=== PATIENT | female | born 1935 | race African-American/Black ===

== ENCOUNTER 2018-04-02 11:30 | Inpatient (IN) ==
[2018-04-02] MEDS ORDERED: SODIUM CHLORIDE 0.9% 1,000 ML IV STA ×2 (11:43→14:15)
[2018-04-02 13:23] LABS: Alanine Aminotransferase 12 U/L (13-56); Albumin 2.1 G/DL (3.4-5.0); Alkaline Phosphatase 125 U/L (45-117); Aspartate Amino Transferase 14 U/L (0-37); Bilirubin,Total < 0.39 MG/DL (0.2-1.0); Blood Urea Nitrogen 33 MG/DL (7-18); Calcium 9.1 MG/DL (8.5-10.1); Glucose 279 MG/DL (74-106); Osmolality,Calculated 325.2 MOS/KG (273-304); Potassium 3.2 MMOL/L (3.5-5.1); Sodium 156 MMOL/L (136-145); Total Protein 7.2 G/DL (6.4-8.3)
[2018-04-02 13:28] LABS: Ammonia < 10 UMOL/L (11-32)
[2018-04-02 13:35] LABS: INR 1.1; PT Patient Result 11.4 SECS; Partial Thromboplastin Time < 21.0 SECS (0-40)
[2018-04-02 13:45] LABS: Barbiturates Screen,Urine Negative (Negative); Benzodiazepines Screen,Urine Negative (Negative); Cannabinoid Screen,Urine Negative (Negative); Opiate Screen,Urine Positive (Negative); Phencyclidine Screen,Urine Negative (Negative)
[2018-04-02 13:47] LABS: Basophils # 0.1 10*3/uL (0.0-0.2); Basophils % 0.7 % (0.0-0.8); Hemoglobin 9.3 GM/DL (12.0-16.0); Immature Granulocytes % 4.2 %; Immature Granulocytes Absolute 0.29 #; Lymphocytes % 14.2 % (21.3-54.2); Mean Corpuscular Hemoglobin 32 PG (27-34); Mean Corpuscular Volume 102.7 FL (87-102); Mean Platelet Volume 10.5 FL (9.6-12.0); Monocytes # 0.6 10*3/uL (0.11-0.8); NRBC # 0.08 10*3/uL; Neutrophils % 71.9 % (38.7-73.9); Platelet Count 248 T/CUMM (130-400); Red Blood Count 2.92 MC/CUMM (3.8-5.5); Red Cell Distribution Width 15.9 % (9.3-17.3); White Blood Count 6.9 T/CUMM (4-12)
[2018-04-02 13:56] LABS: Apearance,Urine Cloudy (Clear); Glucose,Urine (UA) >=1000 mg/dL (Negative); Protein,Urine 30 MG/DL; Urine Color Yellow (Yellow)
[2018-04-02 13:57] LABS: Bilirubin,Urine Negative (Negative); Blood, Urine Small mg/dL (Negative); Ketones,Urine 100 mg/dL (Negative); Nitrite,Urine Negative (Negative)
[2018-04-02 13:58] LABS: Bacteria,Urine Rare /HPF (Few); RBC,Urine 5 /HPF (0-4); Urine Urobilinogen 0.2 EU/DL (0.2-1.0); WBC,Urine 10 /HPF (0-6)
[2018-04-02] MEDS ORDERED: ONDANSETRON 4 MG/2 ML VIAL IV PRN (15:40)
[2018-04-02] MEDS ORDERED: ACETAMINOPHEN 325 MG TABLET PO PRN (15:40)
[2018-04-02] MEDS ORDERED: GLUCAGON 1 MG VIAL IM PRN (15:47)
[2018-04-02] MEDS ORDERED: DEXTROSE 50% 25 GM/50 ML VIAL IV PRN (15:47)
[2018-04-02] MEDS: ENOXAPARIN 40 MG/0.4 ML SYRINGE SUBCUT SCH (16:50)
[2018-04-02] MEDS: cefTRIAXone 1,000 MG in SYRINGE 1 EACH IV SCH (16:50)
[2018-04-02] MEDS: SODIUM CHLORIDE 0.45% 1,000 ML IV SCH (17:45)
[2018-04-02] MEDS ORDERED: POTASSIUM CHLORIDE 20 MEQ TABLET PO ONE (18:30)
[2018-04-02 19:52] LABS: Calcium 8.7 MG/DL (8.5-10.1); Osmolality,Calculated 324.9 MOS/KG (273-304); Potassium 3.2 MMOL/L (3.5-5.1)
[2018-04-02] MEDS: INSULIN LISPRO 100 UNIT/ML SUBCUT SCH ×2 (20:51→21:47)
[2018-04-02] MEDS: LETROZOLE 2.5 MG TABLET PO SCH (20:53)
[2018-04-02] MEDS: MEMANTINE 10 MG TABLET PO SCH (20:53)
[2018-04-02] MEDS ORDERED: PALBOCICLIB 100 MG PO SCH (21:00)
[2018-04-02] MEDS ORDERED: INSULIN NPH 100 UNIT/ML SUBCUT SCH (21:00)
[2018-04-03] MEDS: INSULIN LISPRO 100 UNIT/ML SUBCUT SCH ×6 (01:47→22:42)
[2018-04-03] MEDS: SODIUM CHLORIDE 0.45% 1,000 ML IV SCH (04:34)
[2018-04-03 05:27] LABS: Basophils # 0.1 10*3/uL (0.0-0.2); Basophils % 1.2 % (0.0-0.8); Eosinophils # 0.1 10*3/uL (0.0-0.87); Eosinophils % 1.7 % (0.00-10.9); Hematocrit 28.7 VOL% (35.7-47.0); Hemoglobin 8.4 GM/DL (12.0-16.0); Immature Granulocytes % 3.9 %; Immature Granulocytes Absolute 0.23 #; Lymphocytes # 1.2 10*3/uL (1.4-4.0); Lymphocytes % 19.4 % (21.3-54.2); Mean Corpuscular HGB Conc 29.3 GM/DL (32-36); Mean Corpuscular Hemoglobin 32 PG (27-34); Mean Corpuscular Volume 108.7 FL (87-102); Monocytes # 0.6 10*3/uL (0.11-0.8); Monocytes % 10.1 % (1.7-12.7); NRBC # 0.04 10*3/uL; Neutrophils # 3.8 10*3/uL (1.4-7.4); Neutrophils % 63.7 % (38.7-73.9); Platelet Count 210 T/CUMM (130-400); Red Blood Count 2.64 MC/CUMM (3.8-5.5); White Blood Count 5.9 T/CUMM (4-12)
[2018-04-03 05:37] LABS: Alanine Aminotransferase < 9 U/L (13-56); Albumin 1.7 G/DL (3.4-5.0); Alkaline Phosphatase 100 U/L (45-117); Aspartate Amino Transferase 15 U/L (0-37); Blood Urea Nitrogen 24 MG/DL (7-18); Calcium 7.8 MG/DL (8.5-10.1); Glucose 182 MG/DL (74-106); Osmolality,Calculated 309.7 MOS/KG (273-304); Potassium 3.5 MMOL/L (3.5-5.1); Sodium 152 MMOL/L (136-145); Total Protein 5.9 G/DL (6.4-8.3)
[2018-04-03 06:39] LABS: Macrocytosis 2+; Platelet Estimate Normal; Polychromasia 1+
[2018-04-03 06:41] LABS: Band Neutrophils 1 % (0-10); Eosinophils 1 % (0-10); Lymphocytes 23 % (20-55); Segmented Neutrophils 67 % (50-85); Total Cells Counted 100
[2018-04-03] MEDS ORDERED: LABETALOL 20 MG/4 ML SYRINGE IV ONE (07:29)
[2018-04-03] MEDS: ALLOPURINOL 100 MG TABLET PO SCH (09:38)
[2018-04-03] MEDS: PANTOPRAZOLE 40 MG TABLET PO SCH (09:38)
[2018-04-03] MEDS: MEMANTINE 10 MG TABLET PO SCH ×2 (09:38→20:20)
[2018-04-03] MEDS ORDERED: NIFEdipine 10 MG CAPSULE PO PRN (14:26)
[2018-04-03] MEDS: amLODIPine 5 MG TABLET PO SCH (16:44)
[2018-04-03] MEDS: ENOXAPARIN 40 MG/0.4 ML SYRINGE SUBCUT SCH (18:10)
[2018-04-03] MEDS: SODIUM HYPOCHLORITE 0.25% IRRIG 473 ML BOTTLE TOP SCH ×2 (19:02→20:12)
[2018-04-03] MEDS: LETROZOLE 2.5 MG TABLET PO SCH (20:20)
[2018-04-04] MEDS: INSULIN LISPRO 100 UNIT/ML SUBCUT SCH ×6 (02:22→21:33)
[2018-04-04 05:31] LABS: Basophils # 0.1 10*3/uL (0.0-0.2); Basophils % 1.2 % (0.0-0.8); Eosinophils # 0.2 10*3/uL (0.0-0.87); Eosinophils % 3.1 % (0.00-10.9); Hematocrit 25.9 VOL% (35.7-47.0); Hemoglobin 7.8 GM/DL (12.0-16.0); Immature Granulocytes % 5.4 %; Immature Granulocytes Absolute 0.35 #; Lymphocytes # 1.2 10*3/uL (1.4-4.0); Lymphocytes % 18.7 % (21.3-54.2); Mean Corpuscular HGB Conc 30.1 GM/DL (32-36); Mean Corpuscular Hemoglobin 32 PG (27-34); Mean Corpuscular Volume 105.3 FL (87-102); Mean Platelet Volume 10.2 FL (9.6-12.0); Monocytes # 0.5 10*3/uL (0.11-0.8); Monocytes % 8.2 % (1.7-12.7); NRBC # 0.05 10*3/uL; Neutrophils # 4.1 10*3/uL (1.4-7.4); Neutrophils % 63.4 % (38.7-73.9); Platelet Count 238 T/CUMM (130-400); Red Blood Count 2.46 MC/CUMM (3.8-5.5); Red Cell Distribution Width 15.8 % (9.3-17.3); White Blood Count 6.5 T/CUMM (4-12)
[2018-04-04 06:23] LABS: Band Neutrophils 3 % (0-10); Eosinophils 4 % (0-10); Hypochromasia 1+; Lymphocytes 21 % (20-55); Macrocytosis 1+; Myelocytes 1 %; Nucleated Red Blood Cells 1 (0-5); Ovalocytes Slight; Segmented Neutrophils 63 % (50-85); Total Cells Counted 100
[2018-04-04 06:24] LABS: Platelet Estimate Normal; Polychromasia Slight
[2018-04-04 06:25] LABS: Calcium 8.6 MG/DL (8.5-10.1); Osmolality,Calculated 319.9 MOS/KG (273-304); Potassium 3.2 MMOL/L (3.5-5.1)
[2018-04-04] MEDS: FLUCONAZOLE INJ 200 MG in PREMIX 1 EACH IV SCH ×2 (09:23→12:17)
[2018-04-04] MEDS: cefTRIAXone 1,000 MG in SYRINGE 1 EACH IV SCH ×2 (09:23→16:26)
[2018-04-04] MEDS: DEXTROSE 5% 1,000 ML IV SCH ×2 (09:57→20:18)
[2018-04-04] MEDS: ALLOPURINOL 100 MG TABLET PO SCH (09:58)
[2018-04-04] MEDS: PANTOPRAZOLE 40 MG TABLET PO SCH (09:58)
[2018-04-04] MEDS: amLODIPine 5 MG TABLET PO SCH (10:05)
[2018-04-04] MEDS: MEMANTINE 10 MG TABLET PO SCH ×2 (10:08→20:17)
[2018-04-04] MEDS: SODIUM CHLORIDE 0.45% 1,000 ML IV SCH (11:30)
[2018-04-04] MEDS: oxyCODONE IR 5 MG TABLET PO PRN ×2 (13:44→17:45)
[2018-04-04] MEDS: SODIUM HYPOCHLORITE 0.25% IRRIG 473 ML BOTTLE TOP SCH ×2 (14:50→20:18)
[2018-04-04 15:45] LABS: Calcium 8.5 MG/DL (8.5-10.1); Osmolality,Calculated 312.6 MOS/KG (273-304); Potassium 3.6 MMOL/L (3.5-5.1)
[2018-04-04] MEDS: ENOXAPARIN 40 MG/0.4 ML SYRINGE SUBCUT SCH (16:25)
[2018-04-04] MEDS: LETROZOLE 2.5 MG TABLET PO SCH (20:17)
[2018-04-05] MEDS: INSULIN LISPRO 100 UNIT/ML SUBCUT SCH ×5 (02:18→17:45)
[2018-04-05 04:52] LABS: Basophils # 0.1 10*3/uL (0.0-0.2); Basophils % 1.5 % (0.0-0.8); Eosinophils # 0.2 10*3/uL (0.0-0.87); Eosinophils % 3.7 % (0.00-10.9); Hematocrit 26.8 VOL% (35.7-47.0); Immature Granulocytes % 6.3 %; Immature Granulocytes Absolute 0.37 #; Lymphocytes # 1.3 10*3/uL (1.4-4.0); Lymphocytes % 22.8 % (21.3-54.2); Mean Corpuscular HGB Conc 29.9 GM/DL (32-36); Mean Corpuscular Hemoglobin 31 PG (27-34); Mean Corpuscular Volume 105.1 FL (87-102); Mean Platelet Volume 11.2 FL (9.6-12.0); Monocytes # 0.4 10*3/uL (0.11-0.8); Monocytes % 6.8 % (1.7-12.7); NRBC # 0.05 10*3/uL; Neutrophils # 3.5 10*3/uL (1.4-7.4); Neutrophils % 58.9 % (38.7-73.9); Platelet Count 195 T/CUMM (130-400); Red Blood Count 2.55 MC/CUMM (3.8-5.5); Red Cell Distribution Width 16.1 % (9.3-17.3); White Blood Count 5.9 T/CUMM (4-12)
[2018-04-05 04:56] LABS: Calcium 8.3 MG/DL (8.5-10.1); Ferritin 347.4 ng/ml (8-252); Osmolality,Calculated 303.3 MOS/KG (273-304); Potassium 3.1 MMOL/L (3.5-5.1)
[2018-04-05 05:39] LABS: Acanthocytes 1+; Anisocytosis 2+; Band Neutrophils 4 % (0-10); Eosinophils 1 % (0-10); Hypochromasia 2+; Lymphocytes 22 % (20-55); Macrocytosis 2+; Metamyelocytes 1 %; Ovalocytes 1+; Platelet Estimate Normal; Polychromasia 1+; Segmented Neutrophils 68 % (50-85); Total Cells Counted 100
[2018-04-05] MEDS: DEXTROSE 5% 1,000 ML IV SCH ×2 (05:59→15:20)
[2018-04-05] MEDS: MEMANTINE 10 MG TABLET PO SCH ×2 (09:26→21:37)
[2018-04-05] MEDS: amLODIPine 5 MG TABLET PO SCH (09:26)
[2018-04-05] MEDS: ALLOPURINOL 100 MG TABLET PO SCH (09:27)
[2018-04-05] MEDS: PANTOPRAZOLE 40 MG TABLET PO SCH (09:27)
[2018-04-05] MEDS: oxyCODONE IR 5 MG TABLET PO PRN ×2 (10:30→18:32)
[2018-04-05] MEDS: SODIUM HYPOCHLORITE 0.25% IRRIG 473 ML BOTTLE TOP SCH ×2 (10:32→21:37)
[2018-04-05] MEDS: FLUCONAZOLE INJ 200 MG in PREMIX 1 EACH IV SCH (12:07)
[2018-04-05] MEDS: ENOXAPARIN 40 MG/0.4 ML SYRINGE SUBCUT SCH (17:44)
[2018-04-05] MEDS: cefTRIAXone 1,000 MG in SYRINGE 1 EACH IV SCH (17:46)
[2018-04-05] MEDS: LETROZOLE 2.5 MG TABLET PO SCH (21:37)
[2018-04-06] MEDS: INSULIN LISPRO 100 UNIT/ML SUBCUT SCH ×7 (02:26→20:25)
[2018-04-06] MEDS: DEXTROSE 5% 1,000 ML IV SCH ×3 (04:50→11:29)
[2018-04-06 05:06] LABS: Basophils # 0.1 10*3/uL (0.0-0.2); Basophils % 2.1 % (0.0-0.8); Eosinophils # 0.2 10*3/uL (0.0-0.87); Eosinophils % 3.6 % (0.00-10.9); Hematocrit 24.3 VOL% (35.7-47.0); Hemoglobin 7.2 GM/DL (12.0-16.0); Immature Granulocytes % 8.8 %; Immature Granulocytes Absolute 0.56 #; Lymphocytes # 1.6 10*3/uL (1.4-4.0); Mean Corpuscular HGB Conc 29.6 GM/DL (32-36); Mean Corpuscular Hemoglobin 31 PG (27-34); Mean Corpuscular Volume 105.7 FL (87-102); Mean Platelet Volume 10.4 FL (9.6-12.0); Monocytes # 0.4 10*3/uL (0.11-0.8); Monocytes % 6.3 % (1.7-12.7); NRBC # 0.05 10*3/uL; Neutrophils # 3.4 10*3/uL (1.4-7.4); Neutrophils % 54.2 % (38.7-73.9); Platelet Count 222 T/CUMM (130-400); Red Cell Distribution Width 15.8 % (9.3-17.3); White Blood Count 6.3 T/CUMM (4-12)
[2018-04-06 05:38] LABS: Calcium 7.9 MG/DL (8.5-10.1); Osmolality,Calculated 300.7 MOS/KG (273-304); Potassium 2.8 MMOL/L (3.5-5.1)
[2018-04-06 05:39] LABS: Band Neutrophils 16 % (0-10); Eosinophils 5 % (0-10); Lymphocytes 27 % (20-55); Segmented Neutrophils 47 % (50-85); Total Cells Counted 100
[2018-04-06 05:40] LABS: Anisocytosis 1+; Poikilocytosis 1+
[2018-04-06] MEDS: POTASSIUM CHLORIDE RIDER 10 MEQ in PREMIX 1 EACH IV PRN ×4 (06:54→15:36)
[2018-04-06] MEDS: amLODIPine 5 MG TABLET PO SCH (10:11)
[2018-04-06] MEDS: MEMANTINE 10 MG TABLET PO SCH ×2 (10:12→20:26)
[2018-04-06] MEDS: ALLOPURINOL 100 MG TABLET PO SCH (10:12)
[2018-04-06] MEDS: PANTOPRAZOLE 40 MG TABLET PO SCH (10:12)
[2018-04-06] MEDS: SODIUM HYPOCHLORITE 0.25% IRRIG 473 ML BOTTLE TOP SCH ×2 (10:13→23:30)
[2018-04-06] MEDS: FLUCONAZOLE INJ 200 MG in PREMIX 1 EACH IV SCH (13:44)
[2018-04-06] MEDS ORDERED: SODIUM CHLORIDE 0.9% 1,000 ML IV PRN (15:09)
[2018-04-06] MEDS: ENOXAPARIN 40 MG/0.4 ML SYRINGE SUBCUT SCH (15:34)
[2018-04-06] MEDS: cefTRIAXone 1,000 MG in SYRINGE 1 EACH IV SCH (15:35)
[2018-04-06 19:13] LABS: Apearance,Urine CLOUDY (Clear); Bilirubin,Urine Negative (Negative); Blood, Urine Moderate mg/dL (Negative); Glucose,Urine (UA) >=500 mg/dL (Negative); Ketones,Urine Negative (Negative); Nitrite,Urine Negative (Negative); Protein,Urine 30 MG/DL; RBC,Urine 363 /HPF (0-4); Squamous Epithelial Cell,Urine Occasional /HPF (0-10); Urine Color Yellow (Yellow); Urine Urobilinogen < 2.0 EU/DL (0.2-1.0); WBC,Urine 333 /HPF (0-6)
[2018-04-06] MEDS: LETROZOLE 2.5 MG TABLET PO SCH (20:26)
[2018-04-07] MEDS: INSULIN LISPRO 100 UNIT/ML SUBCUT SCH ×6 (00:46→20:18)
[2018-04-07] MEDS: DEXTROSE 5% 1,000 ML IV SCH (01:28)
[2018-04-07] MEDS: POTASSIUM CHLORIDE RIDER 10 MEQ in PREMIX 1 EACH IV PRN (02:47)
[2018-04-07 05:30] LABS: Calcium 8.1 MG/DL (8.5-10.1); Osmolality,Calculated 293.8 MOS/KG (273-304); Potassium 4.1 MMOL/L (3.5-5.1)
[2018-04-07 07:27] LABS: Basophils # 0.2 10*3/uL (0.0-0.2); Basophils % 2.2 % (0.0-0.8); Eosinophils # 0.2 10*3/uL (0.0-0.87); Eosinophils % 2.8 % (0.00-10.9); Hematocrit 32.8 VOL% (35.7-47.0); Immature Granulocytes % 8.1 %; Immature Granulocytes Absolute 0.55 #; Lymphocytes # 1.2 10*3/uL (1.4-4.0); Lymphocytes % 17.2 % (21.3-54.2); Mean Corpuscular HGB Conc 31.4 GM/DL (32-36); Mean Corpuscular Hemoglobin 31 PG (27-34); Mean Corpuscular Volume 97.6 FL (87-102); Mean Platelet Volume 10.1 FL (9.6-12.0); Monocytes # 0.7 10*3/uL (0.11-0.8); Monocytes % 10.2 % (1.7-12.7); NRBC # 0.07 10*3/uL; Neutrophils % 59.5 % (38.7-73.9); Platelet Count 202 T/CUMM (130-400); Red Cell Distribution Width 16.9 % (9.3-17.3); White Blood Count 6.8 T/CUMM (4-12)
[2018-04-07 07:44] LABS: Hemoglobin 10.3 GM/DL (12.0-16.0); Red Blood Count 3.36 MC/CUMM (3.8-5.5)
[2018-04-07 08:09] LABS: Band Neutrophils 33 % (0-10); Eosinophils 5 % (0-10); Lymphocytes 19 % (20-55); Nucleated Red Blood Cells 1 (0-5); Segmented Neutrophils 35 % (50-85); Total Cells Counted 100
[2018-04-07 08:10] LABS: Anisocytosis 1+; Platelet Estimate Normal
[2018-04-07] MEDS: MEMANTINE 10 MG TABLET PO SCH ×2 (08:52→20:18)
[2018-04-07] MEDS: PANTOPRAZOLE 40 MG TABLET PO SCH (08:52)
[2018-04-07] MEDS: ALLOPURINOL 100 MG TABLET PO SCH (08:52)
[2018-04-07] MEDS: SODIUM HYPOCHLORITE 0.25% IRRIG 473 ML BOTTLE TOP SCH ×2 (08:52→23:50)
[2018-04-07] MEDS: amLODIPine 5 MG TABLET PO SCH (08:52)
[2018-04-07] MEDS ORDERED: BISACODYL 10 MG SUPP RECTAL ONE (14:28)
[2018-04-07] MEDS ORDERED: MAGNESIUM SULF RIDER 2 GM in PREMIX 1 EACH IV ONE (14:34)
[2018-04-07] MEDS: FLUCONAZOLE INJ 200 MG in PREMIX 1 EACH IV SCH (14:37)
[2018-04-07 15:41] LABS: ABG Base Excess 5.6 MMOL/L (-2.5-2.5); ABG HCO3 29.5 MMOL/L (20-26); ABG Oxygen Saturation 98.2 % (95-100); ABG PCO2 40.3 MM HG (35-48); ABG PH 7.482 (7.35-7.45); ABG PO2 123.3 MM HG (80-95); ABG TCO2 30.7 MMOL/L (23-27); Allen Test Positive
[2018-04-07] MEDS: cefTRIAXone 1,000 MG in SYRINGE 1 EACH IV SCH (15:55)
[2018-04-07] MEDS: ENOXAPARIN 40 MG/0.4 ML SYRINGE SUBCUT SCH (15:55)
[2018-04-07] MEDS: INSULIN GLARGINE 100 UNIT/ML SUBCUT SCH (15:56)
[2018-04-07] MEDS: VANCOMYCIN INJ 1,500 MG in SODIUM CHLORIDE 0.9% 500 ML IV SCH (18:10)
[2018-04-07] MEDS: LETROZOLE 2.5 MG TABLET PO SCH (20:18)
[2018-04-07 20:41] LABS: Ammonia 11 UMOL/L (11-32)
[2018-04-07 20:44] LABS: Alanine Aminotransferase 23 U/L (13-56); Albumin 1.9 G/DL (3.4-5.0); Alkaline Phosphatase 131 U/L (45-117); Aspartate Amino Transferase 42 U/L (0-37); Bilirubin,Direct < 0.100 MG/DL (0.0-0.20); Bilirubin,Indirect 0.3 MG/DL (0.0-1.0); Bilirubin,Total < 0.39 MG/DL (0.2-1.0); Total Protein 5.8 G/DL (6.4-8.3)
[2018-04-08] MEDS: INSULIN LISPRO 100 UNIT/ML SUBCUT SCH ×6 (00:54→21:52)
[2018-04-08 05:49] LABS: Basophils # 0.1 10*3/uL (0.0-0.2); Eosinophils # 0.2 10*3/uL (0.0-0.87); Eosinophils % 2.5 % (0.00-10.9); Hematocrit 33.8 VOL% (35.7-47.0); Hemoglobin 10.6 GM/DL (12.0-16.0); Immature Granulocytes % 5.5 %; Immature Granulocytes Absolute 0.35 #; Lymphocytes # 0.9 10*3/uL (1.4-4.0); Mean Corpuscular HGB Conc 31.4 GM/DL (32-36); Mean Corpuscular Hemoglobin 30 PG (27-34); Mean Corpuscular Volume 96.6 FL (87-102); Mean Platelet Volume 11.1 FL (9.6-12.0); Monocytes # 0.7 10*3/uL (0.11-0.8); Monocytes % 11.5 % (1.7-12.7); NRBC # 0.02 10*3/uL; Neutrophils # 4.1 10*3/uL (1.4-7.4); Neutrophils % 64.5 % (38.7-73.9); Platelet Count 175 T/CUMM (130-400); Red Cell Distribution Width 16.7 % (9.3-17.3); White Blood Count 6.4 T/CUMM (4-12)
[2018-04-08 06:10] LABS: Band Neutrophils 1 % (0-10); Eosinophils 1 % (0-10); Lymphocytes 19 % (20-55); Metamyelocytes 1 %; Myelocytes 1 %; Segmented Neutrophils 70 % (50-85); Total Cells Counted 100
[2018-04-08 06:11] LABS: Hypochromasia 1+
[2018-04-08 06:12] LABS: Macrocytosis 1+; Ovalocytes Slight
[2018-04-08 06:28] LABS: Calcium 8.3 MG/DL (8.5-10.1); Osmolality,Calculated 295.6 MOS/KG (273-304); Potassium 3.5 MMOL/L (3.5-5.1)
[2018-04-08] MEDS: MEMANTINE 10 MG TABLET PO SCH ×2 (09:48→21:52)
[2018-04-08] MEDS: ALLOPURINOL 100 MG TABLET PO SCH (09:48)
[2018-04-08] MEDS: PANTOPRAZOLE 40 MG TABLET PO SCH (09:48)
[2018-04-08] MEDS: amLODIPine 5 MG TABLET PO SCH (09:49)
[2018-04-08] MEDS: INSULIN GLARGINE 100 UNIT/ML SUBCUT SCH (09:53)
[2018-04-08] MEDS: SODIUM HYPOCHLORITE 0.25% IRRIG 473 ML BOTTLE TOP SCH ×2 (12:50→21:52)
[2018-04-08] MEDS: oxyCODONE IR 5 MG TABLET PO PRN (14:01)
[2018-04-08] MEDS: FLUCONAZOLE INJ 200 MG in PREMIX 1 EACH IV SCH (14:08)
[2018-04-08] MEDS ORDERED: MAGNESIUM SULF RIDER 2 GM in PREMIX 1 EACH IV ONE (15:09)
[2018-04-08] MEDS ORDERED: INSULIN GLARGINE 100 UNIT/ML SUBCUT SCH (15:10)
[2018-04-08] MEDS: cefTRIAXone 1,000 MG in SYRINGE 1 EACH IV SCH (15:51)
[2018-04-08] MEDS: VANCOMYCIN INJ 1,500 MG in SODIUM CHLORIDE 0.9% 500 ML IV SCH (15:57)
[2018-04-08] MEDS: ENOXAPARIN 40 MG/0.4 ML SYRINGE SUBCUT SCH (17:50)
[2018-04-08] MEDS: LETROZOLE 2.5 MG TABLET PO SCH (21:52)
[2018-04-09] MEDS: INSULIN LISPRO 100 UNIT/ML SUBCUT SCH ×6 (00:40→20:23)
[2018-04-09 05:42] LABS: Basophils # 0.1 10*3/uL (0.0-0.2); Basophils % 1.6 % (0.0-0.8); Eosinophils # 0.3 10*3/uL (0.0-0.87); Eosinophils % 4.1 % (0.00-10.9); Immature Granulocytes % 4.6 %; Immature Granulocytes Absolute 0.28 #; Lymphocytes # 1.3 10*3/uL (1.4-4.0); Lymphocytes % 21.8 % (21.3-54.2); Mean Corpuscular HGB Conc 30.3 GM/DL (32-36); Mean Corpuscular Hemoglobin 30 PG (27-34); Mean Corpuscular Volume 99.1 FL (87-102); Monocytes # 0.7 10*3/uL (0.11-0.8); Neutrophils # 3.4 10*3/uL (1.4-7.4); Neutrophils % 55.9 % (38.7-73.9); Platelet Count 237 T/CUMM (130-400); Red Blood Count 3.33 MC/CUMM (3.8-5.5); Red Cell Distribution Width 16.6 % (9.3-17.3); White Blood Count 6.1 T/CUMM (4-12)
[2018-04-09 06:27] LABS: Hypochromasia 1+; Macrocytosis Slight; Ovalocytes Slight; Platelet Estimate Adequate
[2018-04-09] MEDS ORDERED: MAGNESIUM HYDROXIDE SUSP 30 ML UDCUP PO PRN (08:00)
[2018-04-09] MEDS: ALLOPURINOL 100 MG TABLET PO SCH (10:09)
[2018-04-09] MEDS: MEMANTINE 10 MG TABLET PO SCH ×2 (10:09→20:23)
[2018-04-09] MEDS: amLODIPine 5 MG TABLET PO SCH (10:10)
[2018-04-09] MEDS: PANTOPRAZOLE 40 MG TABLET PO SCH (10:11)
[2018-04-09] MEDS ORDERED: INSULIN GLARGINE 100 UNIT/ML SUBCUT SCH (10:51)
[2018-04-09] MEDS: SODIUM HYPOCHLORITE 0.25% IRRIG 473 ML BOTTLE TOP SCH ×2 (14:15→22:10)
[2018-04-09] MEDS: oxyCODONE IR 5 MG TABLET PO PRN ×2 (14:39→18:40)
[2018-04-09] MEDS: FLUCONAZOLE INJ 200 MG in PREMIX 1 EACH IV SCH (14:45)
[2018-04-09] MEDS: VANCOMYCIN INJ 1,500 MG in SODIUM CHLORIDE 0.9% 500 ML IV SCH (16:14)
[2018-04-09] MEDS: ENOXAPARIN 40 MG/0.4 ML SYRINGE SUBCUT SCH (18:21)
[2018-04-09] MEDS: cefTRIAXone 1,000 MG in SYRINGE 1 EACH IV SCH (18:42)
[2018-04-09] MEDS: LETROZOLE 2.5 MG TABLET PO SCH (20:23)
[2018-04-10] MEDS: INSULIN LISPRO 100 UNIT/ML SUBCUT SCH ×6 (00:04→20:12)
[2018-04-10 07:06] LABS: Calcium 8.4 MG/DL (8.5-10.1); Osmolality,Calculated 304.1 MOS/KG (273-304); Potassium 3.4 MMOL/L (3.5-5.1)
[2018-04-10] MEDS ORDERED: DEXTROSE 5% 1,000 ML IV SCH (08:30)
[2018-04-10] MEDS: PANTOPRAZOLE 40 MG TABLET PO SCH (09:36)
[2018-04-10] MEDS: INSULIN NPH/REGULAR 70/30 100 UNIT/ML SUBCUT SCH ×2 (09:37→18:35)
[2018-04-10] MEDS: ALLOPURINOL 100 MG TABLET PO SCH (09:37)
[2018-04-10] MEDS: MEMANTINE 10 MG TABLET PO SCH ×2 (09:37→20:13)
[2018-04-10] MEDS: amLODIPine 5 MG TABLET PO SCH (09:37)
[2018-04-10] MEDS: SODIUM HYPOCHLORITE 0.25% IRRIG 473 ML BOTTLE TOP SCH ×2 (09:38→23:00)
[2018-04-10] MEDS: oxyCODONE IR 5 MG TABLET PO PRN ×2 (10:08→19:05)
[2018-04-10] MEDS: ENOXAPARIN 40 MG/0.4 ML SYRINGE SUBCUT SCH (18:36)
[2018-04-10] MEDS: VANCOMYCIN INJ 1,500 MG in SODIUM CHLORIDE 0.9% 500 ML IV SCH (18:36)
[2018-04-10] MEDS: LETROZOLE 2.5 MG TABLET PO SCH (20:13)
[2018-04-11] MEDS: INSULIN LISPRO 100 UNIT/ML SUBCUT SCH ×6 (00:05→20:55)
[2018-04-11] MEDS: amLODIPine 5 MG TABLET PO SCH (09:32)
[2018-04-11] MEDS: ALLOPURINOL 100 MG TABLET PO SCH (09:32)
[2018-04-11] MEDS: MEMANTINE 10 MG TABLET PO SCH ×3 (09:32→23:56)
[2018-04-11] MEDS: SODIUM HYPOCHLORITE 0.25% IRRIG 473 ML BOTTLE TOP SCH ×2 (09:32→23:15)
[2018-04-11] MEDS: oxyCODONE IR 5 MG TABLET PO PRN ×2 (09:32→17:44)
[2018-04-11] MEDS: PANTOPRAZOLE 40 MG TABLET PO SCH (09:32)
[2018-04-11] MEDS: INSULIN NPH/REGULAR 70/30 100 UNIT/ML SUBCUT SCH ×2 (09:32→17:44)
[2018-04-11] MEDS: SODIUM CHLORIDE 23.4% CONC INJ 38.5 MEQ in STERILE WATER INJ 1,000 ML IV SCH ×2 (11:30→23:55)
[2018-04-11] MEDS: ENOXAPARIN 40 MG/0.4 ML SYRINGE SUBCUT SCH (15:51)
[2018-04-11] MEDS: VANCOMYCIN INJ 1,500 MG in SODIUM CHLORIDE 0.9% 500 ML IV SCH (17:44)
[2018-04-11] MEDS: LETROZOLE 2.5 MG TABLET PO SCH ×2 (20:55→23:56)
[2018-04-12] MEDS: INSULIN LISPRO 100 UNIT/ML SUBCUT SCH ×7 (00:18→23:58)
[2018-04-12] MEDS: SODIUM CHLORIDE 23.4% CONC INJ 38.5 MEQ in STERILE WATER INJ 1,000 ML IV SCH ×2 (05:03→15:00)
[2018-04-12 06:38] LABS: Basophils # 0.1 10*3/uL (0.0-0.2); Basophils % 1.3 % (0.0-0.8); Eosinophils # 0.3 10*3/uL (0.0-0.87); Hematocrit 29.6 VOL% (35.7-47.0); Hemoglobin 9.4 GM/DL (12.0-16.0); Immature Granulocytes % 5.9 %; Immature Granulocytes Absolute 0.55 #; Lymphocytes # 1.7 10*3/uL (1.4-4.0); Lymphocytes % 18.3 % (21.3-54.2); Mean Corpuscular HGB Conc 31.8 GM/DL (32-36); Mean Corpuscular Hemoglobin 31 PG (27-34); Mean Corpuscular Volume 96.1 FL (87-102); Monocytes % 10.8 % (1.7-12.7); Neutrophils # 5.7 10*3/uL (1.4-7.4); Neutrophils % 60.7 % (38.7-73.9); Platelet Count 281 T/CUMM (130-400); Red Blood Count 3.08 MC/CUMM (3.8-5.5); Red Cell Distribution Width 16.2 % (9.3-17.3); White Blood Count 9.4 T/CUMM (4-12)
[2018-04-12 06:53] LABS: Calcium 8.2 MG/DL (8.5-10.1); Osmolality,Calculated 287.1 MOS/KG (273-304); Potassium 3.1 MMOL/L (3.5-5.1)
[2018-04-12 07:26] LABS: Anisocytosis 1+; Band Neutrophils 23 % (0-10); Eosinophils 4 % (0-10); Lymphocytes 14 % (20-55); Macrocytosis 1+; Platelet Estimate Normal; Polychromasia Slight; Segmented Neutrophils 51 % (50-85); Total Cells Counted 100
[2018-04-12] MEDS: MEMANTINE 10 MG TABLET PO SCH ×2 (08:52→20:42)
[2018-04-12] MEDS: amLODIPine 5 MG TABLET PO SCH (08:52)
[2018-04-12] MEDS: PANTOPRAZOLE 40 MG TABLET PO SCH (08:52)
[2018-04-12] MEDS: SODIUM HYPOCHLORITE 0.25% IRRIG 473 ML BOTTLE TOP SCH ×2 (08:53→21:50)
[2018-04-12] MEDS: INSULIN NPH/REGULAR 70/30 100 UNIT/ML SUBCUT SCH ×2 (08:54→16:27)
[2018-04-12] MEDS: POTASSIUM CHLORIDE 20 MEQ TABLET PO SCH ×3 (08:54→18:30)
[2018-04-12] MEDS: ALLOPURINOL 100 MG TABLET PO SCH (08:54)
[2018-04-12] MEDS: ENOXAPARIN 40 MG/0.4 ML SYRINGE SUBCUT SCH (18:28)
[2018-04-12] MEDS: VANCOMYCIN INJ 1,500 MG in SODIUM CHLORIDE 0.9% 500 ML IV SCH (18:28)
[2018-04-12] MEDS ORDERED: POTASSIUM CHLORIDE 20 MEQ TABLET PO SCH (18:30)
[2018-04-12] MEDS: LETROZOLE 2.5 MG TABLET PO SCH (20:42)
[2018-04-13] MEDS: SODIUM CHLORIDE 23.4% CONC INJ 38.5 MEQ in STERILE WATER INJ 1,000 ML IV SCH ×2 (00:07→05:07)
[2018-04-13] MEDS ORDERED: oxyCODONE IR 5 MG TABLET PO PRN (03:52)
[2018-04-13] MEDS: INSULIN LISPRO 100 UNIT/ML SUBCUT SCH ×4 (04:10→18:17)
[2018-04-13 05:59] LABS: Calcium 8.5 MG/DL (8.5-10.1); Osmolality,Calculated 285.4 MOS/KG (273-304); Potassium 3.4 MMOL/L (3.5-5.1)
[2018-04-13] MEDS: ALLOPURINOL 100 MG TABLET PO SCH (09:32)
[2018-04-13] MEDS: amLODIPine 5 MG TABLET PO SCH (09:32)
[2018-04-13] MEDS: SODIUM HYPOCHLORITE 0.25% IRRIG 473 ML BOTTLE TOP SCH (09:32)
[2018-04-13] MEDS: MEMANTINE 10 MG TABLET PO SCH (09:32)
[2018-04-13] MEDS: PANTOPRAZOLE 40 MG TABLET PO SCH (09:32)
[2018-04-13] MEDS: INSULIN NPH/REGULAR 70/30 100 UNIT/ML SUBCUT SCH ×2 (09:33→18:18)
[2018-04-13] MEDS ORDERED: PSYLLIUM POWDER 3.7 GM/PACK PO SCH (15:00)
[2018-04-13] MEDS ORDERED: DOCUSATE SODIUM 100 MG CAPSULE PO SCH (15:00)
[2018-04-13] MEDS ORDERED: FLUCONAZOLE 100 MG TABLET PO SCH (15:00)
[2018-04-13 15:45] LABS: Amorphous Crystals,Urine Occasional /HPF (Few); Apearance,Urine Slightly Hazy (Clear); Bilirubin,Urine Negative (Negative); Blood, Urine Large mg/dL (Negative); Glucose,Urine (UA) Negative (Negative); Ketones,Urine Negative (Negative); Nitrite,Urine Negative (Negative); Protein,Urine 30 MG/DL; RBC,Urine 2 /HPF (0-4); Urine Color Straw (Yellow); Urine Specific Gravity 1.001 (1.001-1.035); Urine Urobilinogen < 2.0 EU/DL (0.2-1.0); WBC,Urine 22 /HPF (0-6)
[2018-04-13] MEDS: ENOXAPARIN 40 MG/0.4 ML SYRINGE SUBCUT SCH (16:45)
[2018-04-13 19:13] VITALS: BP 132/50
[2018-04-14] MEDS ORDERED: FUROSEMIDE 20 MG TABLET PO SCH (09:00)
== END 2018-04-13 18:36 | disposition home health service (06) | DRG 698 ==
LOC: EDUNIT# → EDBD → N.ED 11:30 → SUATTDRO 15:40 → N.EDINP 15:40 → N.4E 18:05
PROVIDERS: ADMIT Internal Medicine; ATTEND Internal Medicine